=== PATIENT | female | born 1990 | race Caucasian/White ===

== ENCOUNTER 2016-10-22 15:41 | Emergency (ER) | payer OTHER ==
--- NOTE | 2016-10-22 16:28 | EDPHY ---
H & P Stated Complaint: Migraine since 3am, getting worse. Time Seen by Provider: 10/22/16 16:27 - Personal History LMP (Females 10-55): Now Tetanus Vaccine Date: 2011 - Medical/Surgical History Hx Asthma: No Hx Chronic Respiratory Disease: No Hx Diabetes: No Hx Cardiac Disease: No Hx Renal Disease: No Hx Cirrhosis: No Hx Alcoholism: No Hx HIV/AIDS: No Hx Splenectomy or Spleen Trauma: No Other PMH: neurofibromitosis, pneumonia - Social History Smoking Status: Current every day smoker Constitutional: Initial Vital Signs Temperature (C) 36.3 C 10/22/16 15:47 Heart Rate 106 H 10/22/16 15:47 Respiratory Rate 16 10/22/16 15:47 Blood Pressure 114/81 H 10/22/16 15:47 O2 Sat (%) 98 10/22/16 15:47 O2 Delivery Mode Room Air Allergies/Adverse Reactions: Sulfa (Sulfonamide Antibiotics) Allergy (Unknown, Verified 03/17/14 08:51) Home Medications: Medication Instructions Recorded Contriol Pill Unk Dose 04/01/12 Ciprofloxacin [Ciloxan Opth Drops] 2 drops LEFTEYE QID #1 opht.btl 03/17/14 Hydrocodone/APAP 5/325 [[place] 1 each PO Q4-6PRN PRN #14 tab 03/17/14 5/325 (*)] Medical Decision Making ED Course/Re-evaluation: CHIEF COMPLAINT: Headache HISTORY OF PRESENT ILLNESS: The patient is a 25 year old female presenting with headache that started today. The patient has a history of migraine headache and states her headache today is worse than usual. She took Ibuprofen but found no relief. She has associated nausea, no vomiting. She also complains of upper abdominal pain that is worse on the right than the left. She states this pain has been present for a few weeks, but worsened today. REVIEW OF SYSTEMS: A 10 point review of systems was performed and is negative with the exception of the elements mentioned in the history of present illness. PHYSICAL EXAM: HR, BP, O2 Sat, RR. Temp noted General Appearance: Alert, well hydrated, appropriate, and non-toxic appearing. Head: Atraumatic without scalp tenderness or obvious injury Eyes: Pupils equal, round, reactive to light and accommodation, EOMI, no trauma , no injection. Ears: Clear bilaterally, no perforation, normal landmarks Nose: Atraumatic, no rhinorrhea, clear. Throat: There is no erythema or exudates, no lesions, normal tonsils, mucus membranes moist. Neck: Supple, 2+ carotid upstroke, nontender, no lymphadenopathy. Respiratory: No retractions, no distress, no wheezes, and no accessory muscle use. Lungs are clear to auscultation bilaterally. Cardiovascular: Regular rate and rhythm, no murmurs, rubs, or gallops. Bilateral carotid, radial, dorsalis pedis, and posterior tibial pulses intact. Good capillary refill all extremities. Gastrointestinal: Abdomen is soft, nontender, non-distended, no masses, no rebound, no guarding, no peritoneal signs. Musculoskeletal: Normal active ROM of all extremities, atraumatic. Neurological: Alert, appropriate, and interactive. The patient has normal DTRs and non-focal cranial nerves, motor, sensory, and cerebellar exam. Skin: No rashes, good turgor, no nodules on palpation. Past medical history: Neurofibromatosis, Migraines Past surgical history: Denies Family history: Noncontributory Social history: student DIAGNOSTICS/PROCEDURES/CRITICAL CARE TIME: Study: Ultrasound of the abdomen/pelvis was obtained. Results: Negative. Appendix not clearly visualized. Images were interpreted by the radiologist, Dr. Fonseca. DIFFERENTIAL DIAGNOSIS: The differential diagnosis for the patient's headache included but was not limited to subarachnoid hemorrhage, migraine headache, tension headache and infectious causes such as meningitis, pharyngitis and sinusitis. MEDICAL DECISION MAKING: The patient is a 25 year old female presenting with headache. She states her headache today is worse than usual migraines. Plan to treat headache with IV Reglan, Toradol, and Decadron. The patient also complains of abdominal pain that has been present for a few weeks, but worsened today. Her pain is localized to the upper right quadrant. Plan to check labs, UA, and have ultrasound of her abdomen. 5:30 p.m.: US was done, we are waiting for results. I reevaluated the patient, her headache is almost gone. - Data Points Laboratory Results: Laboratory Results 10/22/16 16:49 10/22/16 16:49 10/22/16 16:49 WBC 4.87 10^3/uL (3.80-9.50) RBC 4.23 10^6/uL (4.18-5.33) Hgb 14.1 g/dL (12.6-16.3) Hct 40.7 % (38.0-47.0) MCV 96.2 fL (81.5-99.8) MCH 33.3 pg (27.9-34.1) MCHC 34.6 g/dL (32.4-36.7) RDW 12.7 % (11.5-15.2) Plt Count 229 10^3/uL (150-400) MPV 9.5 fL (8.7-11.7) Neut % (Auto) 66.8 % (39.3-74.2) Lymph % (Auto) 21.6 % (15.0-45.0) [place] % (Auto) 8.4 % (4.5-13.0) Eos % (Auto) 1.8 % (0.6-7.6) Baso % (Auto) 1.0 % (0.3-1.7) Nucleat RBC Rel Count 0.0 % (0.0-0.2) Absolute Neuts (auto) 3.25 10^3/uL (1.70-6.50) Absolute Lymphs (auto) 1.05 10^3/uL (1.00-3.00) Absolute Monos (auto) 0.41 10^3/uL (0.30-0.80) Absolute Eos (auto) 0.09 10^3/uL (0.03-0.40) Absolute Basos (auto) 0.05 10^3/uL (0.02-0.10) Absolute Nucleated RBC 0.00 10^3/uL (0-0.01) Immature Gran % 0.4 % (0.0-1.1) Immature Gran # 0.02 10^3/uL (0.00-0.10) Sodium 144 mEq/L (134-144) Potassium 3.7 mEq/L (3.5-5.2) Chloride 108 mEq/L (97-110) Carbon Dioxide 24 mEq/l (22-31) Anion Gap 12 mEq/L (8-16) BUN 8 mg/dL (7-23) Creatinine 0.6 mg/dL (0.6-1.0) Estimated GFR > 60 Glucose 85 mg/dL (70-100) Calcium 8.9 mg/dL (8.5-10.4) Total Bilirubin 0.4 mg/dL (0.1-1.4) Conjugated Bilirubin 0.2 mg/dL (0.0-0.5) Unconjugated Bilirubin 0.2 mg/dL (0.0-1.1) AST 30 IU/L (14-46) ALT 39 IU/L (9-52) Alkaline Phosphatase 65 IU/L (38-126) Total Protein 7.5 g/dL (6.3-8.2) Albumin 4.4 g/dL (3.5-5.0) Lipase 47.0 IU/L (23-300) Beta HCG, Qual NEGATIVE Medications Given: Discontinued Medications Dexamethasone (Decadron Injection) 10 mg IVP EDNOW ONE Stop: 10/22/16 16:36 Last Admin: 10/22/16 16:51 Dose: 10 mg Sodium Chloride (Ns) 1,000 mls @ 0 mls/hr IV ONCE ONE PRN Reason: Wide Open Stop: 10/22/16 16:36 Last Admin: 10/22/16 16:52 Dose: 1,000 mls Ketorolac Tromethamine (Toradol) 30 mg IVP EDNOW ONE Stop: 10/22/16 16:36 Last Admin: 10/22/16 16:51 Dose: 30 mg Metoclopramide HCl (Reglan Injection) 10 mg IVP EDNOW ONE Stop: 10/22/16 16:36 Last Admin: 10/22/16 16:51 Dose: 10 mg Departure - Departure Disposition: Home, Routine, Self-Care Clinical Impression: Migraine headache Condition: Good Instructions: Migraine Headache (ED) Additional Instructions: Drink plenty of fluids. Referrals: Jackson Ellis MD [Primary Care Provider] - As per Instructions Report Scribed for: Toño Alvarez Report Scribed by: Marita Raymundo Date of Report: 10/22/16 Time of Report: 16:38
[2016-10-22] MEDS ORDERED: DEXAMETHASONE 10 MG/ML VIAL IVP ONE (16:35)
[2016-10-22] MEDS ORDERED: KETOROLAC 30 MG/1 ML SDV IVP ONE (16:35)
[2016-10-22] MEDS ORDERED: METOCLOPRAMIDE 10 MG/2 ML VIAL IVP ONE (16:35)
[2016-10-22] MEDS ORDERED: NS 1,000 ML IV ONE (16:35)
[2016-10-22 16:56] LABS: % IMMATURE GRANULYOCYTES 0.4 % (0.0-1.1); ABSOLUTE IMMATURE GRANULOCYTES 0.02 10^3/uL (0.00-0.10); ADD DIFF? NO; ADD MORPH? NO; ADD SCAN? NO; ATYPICAL LYMPHOCYTE FLAG 40 (0-99); FRAGMENT RBC FLAG 0 (0-99); HEMATOCRIT 40.7 % (38.0-47.0); HEMOGLOBIN 14.1 g/dL (12.6-16.3); LEFT SHIFT FLG 0 (0-99); LIPEMIA HEMOLYSIS FLAG 90 (0-99); MEAN CELL HEMOGLOBIN 33.3 pg (27.9-34.1); MEAN CELL HEMOGLOBIN CONCENTR. 34.6 g/dL (32.4-36.7); MEAN CELL VOLUME 96.2 fL (81.5-99.8); MEAN PLATELET VOLUME 9.5 fL (8.7-11.7); PLATELET CLUMPS FLAG 0 (0-99); PLATELET COUNT 229 10^3/uL (150-400); RED BLOOD CELL COUNT 4.23 10^6/uL (4.18-5.33); RED CELL DISTRIBUTION WIDTH 12.7 % (11.5-15.2)
[2016-10-22 17:20] LABS: ALANINE AMINOTRANSFERASE 39 IU/L (9-52); ALBUMIN 4.4 g/dL (3.5-5.0); ALKALINE PHOSPHATASE 65 IU/L (38-126); ANION GAP 12 mEq/L (8-16); ASPARTATE AMINOTRANSFERASE 30 IU/L (14-46); BILIRUBIN,TOTAL 0.4 mg/dL (0.1-1.4); BILIRUBIN-CONJUGATED 0.2 mg/dL (0.0-0.5); BILIRUBIN-UNCONJUGATED 0.2 mg/dL (0.0-1.1); CALCIUM 8.9 mg/dL (8.5-10.4); CARBON DIOXIDE 24 mEq/l (22-31); CHLORIDE 108 mEq/L (97-110); CREATININE 0.6 mg/dL (0.6-1.0); GLOMERULAR FILTRATION RATE > 60; GLUCOSE 85 mg/dL (70-100); POTASSIUM 3.7 mEq/L (3.5-5.2); SODIUM 144 mEq/L (134-144); TOTAL PROTEIN 7.5 g/dL (6.3-8.2)
[2016-10-22] MEDS ORDERED: HYDROmorphONE/DILAUDID 1 MG/ML SYR ONE (17:28)
--- NOTE | 2016-10-22 17:56 | US ---
1. Limited Abdominal Sonogram History: Right lower quadrant pain, possible appendicitis Technique: Graded compression with a high frequency linear transducer. Findings: A normal appendix is not identified. There is no detected free fluid or loculated fluid. Th e areas of secured by bowel gas. Impression: No indirect sonographic evidence for appendicitis. 2. Ultrasound Pelvis Complete (Transabdominal and Endovaginal) History: Generalized abdominal pain and right lower quadrant pain, possible appendicitis. LMP: Patient just started her period yesterday Findings: Transabdominal and endovaginal ultrasound images were obtained. Endovaginal images obtaine d for better evaluation of the uterine myometrium and adnexa. Duplex doppler is used to evaluate the ovarian bloodflow. The uterus is normal in size. No masses are present. The uterus measures 9.1 x 3.4 x 4 cm. The endome trial measures 0.6 mm in thickness. There is an IUD in the endometrial cavity. The IUD is in the lowe r half of the uterus approximately 2.1 cm from the fundus. The ovaries are normal in size. The right ovary measures 3.8 x 1.7 x 3 cm. The left ovary measures 3.5 x 2 x 2.9 cm. No adnexal masses. There i s an involuting corpus luteum cyst in the left ovary measuring 2 cm. No free fluid is identified in the pelvis. Color and pulsed duplex doppler flow is identified in both ovaries . Resistive index = 0. 69 on the right and 0.67 on the left. Impression: 1. No source for pain identified. 2. IUD low in the uterine corpus. Results called to Dr. Alvarez at 5:53 PM
[2016-10-22 18:09] VITALS: BP 162/94; PULSE 89; RESP 18; TEMP 98.1; O2SAT 94
[2016-10-22 18:22] LABS: COLOR PALE YELLOW; LEUKOCYTE ESTERASE,URINE NEGATIVE (NEGATIVE); NITRITE,URINE NEGATIVE (NEGATIVE)
[2016-10-22 18:29] LABS: BACTERIA TRACE /hpf (NONE SEEN)
== END 2016-10-22 18:09 | disposition home or self-care (01) ==
DX: G43.909 Migraine, unspecified, not intractable, without status migrainosus (principal); F17.200 Nicotine dependence, unspecified, uncomplicated
CPT/HCPCS: 96374; J1170; J1885; J2765

== ENCOUNTER 2017-04-20 07:33 | Emergency (ER) | payer OTHER ==
[2017-04-20 07:44] VITALS: RESP 16
[2017-04-20] MEDS ORDERED: METOCLOPRAMIDE 10 MG/2 ML VIAL IVP ONE (08:01)
[2017-04-20] MEDS ORDERED: KETOROLAC 30 MG/1 ML SDV IVP ONE (08:01)
[2017-04-20] MEDS ORDERED: NS 1,000 ML IV ONE (08:01)
[2017-04-20] MEDS ORDERED: DEXAMETHASONE 10 MG/ML VIAL IVP ONE (08:01)
--- NOTE | 2017-04-20 08:01 | EDPHY ---
H & P Stated Complaint: migraine Time Seen by Provider: 04/20/17 07:35 HPI/ROS: CHIEF COMPLAINT: Migraine headache HISTORY OF PRESENT ILLNESS: The patient presents to the ED with complaints of an acute severe migraine headache that began at 3 o'clock this morning. The patient denies history of recent fall or trauma. The patient denies any acute neurologic symptoms of numbness or weakness. The patient denies fever. The patient states that this is a typical migraine for her. She is not taking any [id number] medications for her symptoms. The patient denies additional infectious symptoms of cough, congestion or recent illness. The patient denies any medication changes. REVIEW OF SYSTEMS: A comprehensive 10 point review of systems is otherwise negative aside from elements mentioned in the history of present illness. Source: Patient - Personal History LMP (Females 10-55): Extended Cycle BCP/Inj Current Tetanus Diphtheria and Acellular Pertussis (TDAP): Yes Tetanus Vaccine Date: 2011 - Medical/Surgical History Hx Asthma: No Hx Chronic Respiratory Disease: No Hx Diabetes: No Hx Cardiac Disease: No Hx Renal Disease: No Hx Cirrhosis: No Hx Alcoholism: No Hx HIV/AIDS: No Hx Splenectomy or Spleen Trauma: No Other PMH: neurofibromitosis, pneumonia, migraines - Social History Smoking Status: Current every day smoker - Physical Exam Exam: General Appearance: Alert, mild discomfort secondary to pain Eyes: Pupils equal and round no pallor or injection ENT, Mouth: Mucous membranes moist Respiratory: There are no retractions, lungs are clear to auscultation Cardiovascular: Regular rate and rhythm Gastrointestinal: Abdomen is soft and nontender, no masses, bowel sounds normal Neurological: A&O, normal motor function, normal sensory exam, normal cranial nerves Skin: Warm and dry, no rashes Musculoskeletal: Neck is supple nontender, specifically no meningeal symptoms are present Extremities: symmetrical, full range of motion Constitutional: Initial Vital Signs Temperature (C) 36.9 C 04/20/17 07:35 Heart Rate 85 04/20/17 07:35 Respiratory Rate 16 04/20/17 07:35 Blood Pressure 140/87 H 04/20/17 07:35 O2 Sat (%) 99 04/20/17 07:35 O2 Delivery Mode Room Air Allergies/Adverse Reactions: Sulfa (Sulfonamide Antibiotics) Allergy (Unknown, Verified 03/17/14 08:51) Home Medications: Medication Instructions Recorded Contriol Pill Unk Dose 04/01/12 Medical Decision Making ED Course/Re-evaluation: I reviewed the patient's past medical records. The patient had an IV established. She received a L of normal saline, IV Toradol, Decadron and Reglan. The patient is neurologically intact. She has no physical exam findings or historical features suggestive of meningitis. I reexamined the patient at 9:30 a.m.. She reports that her headache has resolved. She continues to be neurologically intact. She has no meningeal symptoms. The patient will be discharged home at this point time with customary aftercare instructions and return precautions. Differential Diagnosis: Differential diagnosis considered includes migraine headache, meningitis, tension headache - Data Points Medications Given: Discontinued Medications Dexamethasone (Decadron Injection) 10 mg IVP EDNOW ONE Stop: 04/20/17 08:02 Last Admin: 04/20/17 08:11 Dose: 10 mg Sodium Chloride (Ns) 1,000 mls @ 0 mls/hr IV ONCE ONE; Wide Open PRN Reason: Protocol Stop: 04/20/17 08:02 Last Admin: 04/20/17 08:11 Dose: 1,000 mls Ketorolac Tromethamine (Toradol) 30 mg IVP EDNOW ONE Stop: 04/20/17 08:02 Last Admin: 04/20/17 08:11 Dose: 30 mg Metoclopramide HCl (Reglan Injection) 10 mg IVP EDNOW ONE Stop: 04/20/17 08:02 Last Admin: 04/20/17 08:11 Dose: 10 mg Departure - Departure Disposition: Home, Routine, Self-Care Clinical Impression: Migraine headache Condition: Good Instructions: Acute Headache (ED) Additional Instructions: 1. Take Ibuprofen or Motrin 600 mg by mouth three times a day. 2. Please return to the emergency department for recurrent headache, fever, neck stiffness, numbness, weakness or other concerns. Referrals: Jackson Ellis MD [Primary Care Provider] - As per Instructions Stand Alone Forms: Work Excuse
[2017-04-20 09:44] VITALS: BP 126/74; PULSE 79; O2SAT 96
[2017-04-20 09:45] VITALS: TEMP 98.2
== END 2017-04-20 09:45 | disposition home or self-care (01) ==
DX: G43.909 Migraine, unspecified, not intractable, without status migrainosus (principal); F17.200 Nicotine dependence, unspecified, uncomplicated; E86.9 Volume depletion, unspecified
CPT/HCPCS: 96374; J1100; J1885; J2765

== ENCOUNTER 2017-05-09 20:24 | Emergency (ER) | payer OTHER ==
[2017-05-09 20:39] VITALS: RESP 16
--- NOTE | 2017-05-09 20:47 | EDPHY ---
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 Moderate pain when she touches it. Minimal at rest. No numbness or tingling. No pulsatile blood flow described. No injury elsewhere. She is up- to-date on her tetanus less than 5 years ago. No other areas of injury. No associated complaints or modifying factors. TIME OF INJURY: 5:15 p.m. today TETANUS STATUS: Less than 5 years ago REVIEW OF SYSTEMS: Ten systems reviewed and are negative unless otherwise noted in the HPI EXAMINATION General Appearance: Alert, no distress Head: normocephalic, atraumatic Cardiovascular: Pulses normal throughout.symmetric radial pulses 2+. Brisk cap refill Neurological: A&O, sensory symmetric, strength symmetric. Two point sensation intact. Skin: Warm and dry, no rash. 1.5 cm curvilinear laceration on the right ring finger, distal phalanx, volar. No foreign body. No exposure of the tendon. No pulsatile blood flow Extremities: Tenderness over the area of laceration of finger. Range of motion is fully intact including superficial and deep flexion of the affected finger. Neurovascular intact. DIFFERENTIAL DIAGNOSES: Including but not limited to laceration, complex laceration, laceration with tendon injury, laceration with foreign body MDM: 8:45 p.m. Laceration to the distal phalanx of the right ring finger. Difficult to fully see the wound given the dried blood. I have applied a digital block and we will irrigate the wound re-examine. X-ray has been ordered for possibility of foreign body. She is neurovascular intact with brisk cap refill. 9:44 p.m. Laceration to the right ring finger, distal phalanx. This is a volar. The wound has been clean is now easy to examine. There is a 1 point 5 cm, oblique/ curvilinear laceration. No exposure of the underlying tendon insertion. No foreign body on x-ray. No fracture on x-ray. 10:10 p.m. Laceration has been repaired without complication. She remains neurovascular intact. Full flexion extension. We discussed wound care, return to ED precautions and when to return in 7-10 days for suture removal. She is comfortable with this plan and discharged home stable condition PROCEDURE: Laceration repair Consent: Verbal Location: Right ring finger, distal phalanx, volar Length of repair: 1.5 cm Complexity: Simple Layer involvement: Single Anesthesia: Digital block Irrigation: Extensive Debridement: None Procedure description: Following good anesthesia, the wound was copiously irrigated. Wound bed was explored and there is no foreign body noted. Wound borders were approximated well with good hemostasis. Tolerated well without complication. Suture/Staple material: 5-0 Prolene, 5 simple interrupted sutures Wound care: Routine as discussed Suture/Staple removal: 7-10 Days PROCEDURE: Digital Block Indication: Finger laceration Consent: Verbal Location: Right ring finger Anesthesia: Lidocaine 1% plain, 0.25% Marcaine plain, 5mL Description: Base of the right ring finger was prepped with chlorhexidine. The above solution was infused without complication. Tolerated well. Good anesthesia. Brisk cap refill postprocedure Complications: None SUTURE STAPLE REMOVAL: 7-10 days ED Precautions: Worsening pain. Erythema, edema, cyanosis, pallor, paresthesia or anesthesia. SUPERVISION: This patient was independently evaluated without direct examination by the attending physician. Case was discussed with attending physician. Source: Patient Exam Limitations: No limitations - Personal History LMP (Females 10-55): Now Current Tetanus Diphtheria and Acellular Pertussis (TDAP): Yes Tetanus Vaccine Date: 2011 - Medical/Surgical History Hx Asthma: No Hx Chronic Respiratory Disease: No Hx Diabetes: No Hx Cardiac Disease: No Hx Renal Disease: No Hx Cirrhosis: No Hx Alcoholism: No Hx HIV/AIDS: No Hx Splenectomy or Spleen Trauma: No Other PMH: neurofibromitosis, pneumonia, migraines - Social History Smoking Status: Current every day smoker Constitutional: Initial Vital Signs Temperature (C) 97.9 F 05/09/17 20:37 Heart Rate 66 05/09/17 20:37 Respiratory Rate 16 05/09/17 20:37 Blood Pressure 124/64 H 05/09/17 20:37 O2 Sat (%) 96 05/09/17 20:37 O2 Delivery Mode Room Air Allergies/Adverse Reactions: Sulfa (Sulfonamide Antibiotics) Allergy (Unknown, Verified 05/09/17 20:36) Home Medications: Medication Instructions Recorded Bcp 05/09/17 Medical Decision Making - Diagnostics Imaging Results: Imaging Impressions Finger X-Ray 05/09/17 20:45 Impression: Negative for fracture or radiopaque foreign body. Departure - Departure Disposition: Home, Routine, Self-Care Clinical Impression: Laceration of right ring finger Qualifiers: Encounter type: initial encounter Damage to nail status: without damage Foreign body presence: without foreign body Qualified Code(s): S61.214A - Laceration without foreign body of right ring finger without damage to nail, initial encounter Condition: Good Instructions: Care For Your Stitches (ED), Laceration (ED) Additional Instructions: 1. Daily wound care as discussed 2. Return here in 7-10 days for suture removal Referrals: Jackson Ellis MD [Primary Care Provider] - As per Instructions
[2017-05-09 22:25] VITALS: BP 130/81; PULSE 86; TEMP 99.3; O2SAT 95
== END 2017-05-09 22:25 | disposition home or self-care (01) ==
PROC: 0HQFXZZ Repair Right Hand Skin, External Approach (ICD-10-PCS; principal; 2017-05-09)
DX: S61.214A Laceration without foreign body of right ring finger without damage to nail, initial encounter (principal); F17.200 Nicotine dependence, unspecified, uncomplicated; W26.8XXA Contact with other sharp object(s), not elsewhere classified, initial encounter

== ENCOUNTER 2019-03-20 21:34 | Emergency (ER) | payer OTHER | END 2019-03-20 23:36 | disposition home or self-care (01) ==